=== PATIENT | male | born 1965 | race Caucasian/White ===

== ENCOUNTER → 2018-12-14 | Outpatient (CLI) | payer BC ==
--- NOTE | 2018-12-14 09:17 | MR ---
EXAMINATION TYPE: MR lumbar spine wo con DATE OF EXAM: 12/14/2018 COMPARISON: NONE HISTORY: Right-sided sciatica per order. Low back pain down left leg for 13 weeks per patient. TECHNIQUE: Multiplanar, multisequence imaging of the lumbar spine is performed without IV contrast. FINDINGS: Sagittal images of the lumbar spine show vertebral body to appear satisfactory. Alignment i s straightened with slight grade 1 retrolisthesis of L5 on S1. Multilevel disc desiccation is seen. T here is mild disc space narrowing L4-L5 level. There is advanced disc space narrowing L5-S1 level. T he conus medullaris is normal in position and signal ending mid L1 level. There is heterogeneous rachid r type II endplate changes with moderate anterior spurring right L5-S1 level sagittal image 11. Small hemangioma T12 vertebra is noted sagittal image 6. Axial images show the T12-L1 and L1-L2 levels to appear within normal limits. Axial images at the L2-L3 level show mild broad disc bulge with left foraminal disc protrusion compon ent causing mild left-sided anterior inferior neural foraminal narrowing. Axial images at L3-L4 level show [id number] broad disc bulge with right foraminal/lateral disc protrusion component, there is mild effacement of right anterolateral thecal sac inferiorly moderate right-sided anterior inferior neural foraminal narrowing. Axial images at the L4-L5 level mild facet degenerative changes bilaterally. There is [id number] e broad disc bulge but spinal canal is preserved. There is however advanced left-sided neural foramin al narrowing with obliteration of left-sided epidural fat seen sagittal image 3 and axial image 10 th is could be on basis of focal superior disc extrusion or scar tissue given patient's history of prior surgery 27 years ago. Former is favored. Right-sided neural foramen is patent. Axial images at the L5-S1 level show moderate facet degenerative changes bilaterally. There is cavity pump operator ior spur disc complex but spinal canal is preserved, there is mild to moderate right-sided anterior i nferior neural foraminal narrowing due to marginal spurring. Left-sided neural foramen is patent. No suspicious incidental retroperitoneal findings are seen. IMPRESSION: Multilevel degenerative changes in the lumbar spine as detailed above, attention to the L 4-L5 level where there is marked effacement of the left L4 nerve at foraminal level believed to be du e to superior disc extrusion component likely accounting for patient's clinical symptoms.
== END | disposition home or self-care (01) ==
LOC: RADMRIMAIN 08:11
PROVIDERS: ATTEND Internal Medicine
DX: M51.16 Intervertebral disc disorders with radiculopathy, lumbar region (principal); M47.26 Other spondylosis with radiculopathy, lumbar region
CPT/HCPCS: 72148

== ENCOUNTER 2021-09-07 09:45 | Emergency (ER) | payer BC ==
--- NOTE | 2021-09-07 09:45 | US ---
EXAMINATION TYPE: US venous doppler duplex LE RT DATE OF EXAM: 09/07/2021 9:29 AM COMPARISON: NONE CLINICAL HISTORY: R60.0 LOCALIZED EDEMA. Right calf swelling for the past week SIDE PERFORMED: Right TECHNIQUE: The lower extremity deep venous system is examined utilizing real time linear array sonog kaci with graded compression, doppler sonography and color-flow sonography. VESSELS IMAGED: Common Femoral Vein Deep Femoral Vein Greater Saphenous Vein * Femoral Vein Popliteal Vein Small Saphenous Vein * Proximal Calf Veins (* superficial vessels) Thrombus of the Femoral Vein mid and distal, Popliteal Vein, and Calf vessels Right Leg: Positive for DVT IMPRESSION: 1. Deep venous thrombosis right lower extremity including the mid and distal femoral vein and poplite al vein and proximal calf veins.
[2021-09-07 09:51] VITALS: BP 155/93; PULSE 82; RESP 18; TEMP 98
[2021-09-07] MEDS ORDERED: APIXABAN 5 MG TAB PO STA (10:11)
--- NOTE | 2021-09-07 10:18 | ED ---
General Adult HPI - General Chief complaint: Extremity Injury, Lower Stated complaint: +DVT Time Seen by Provider: 09/07/21 10:00 Source: patient, RN notes reviewed, old records reviewed Mode of arrival: ambulatory Limitations: no limitations - History of Present Illness Initial comments: This is a 55-year-old male who presents emergency Department stating that last few days it swelling of the right leg and is becoming more talked and so he went and saw his primary medical care doctor today and they sent her for an ultrasound. The ultrasound shows a mid to distal femoral vein DVT which appears to be acute and also extends in the popliteal some calf veins. Patient has no difficulty breathing no shortness of breath and no chest pain. Patient denies any other complaints at this time. Patient denies any fever chills. Patient denies any trauma to the leg. Patient denies any recent surgeries. Patient denies any history of similar. - Related Data Home Medications Medication Instructions Recorded Confirmed Aspirin [Adult Low Dose Aspirin EC] 81 mg PO DAILY 08/02/18 08/02/18 glipiZIDE [Glucotrol] 5 mg PO DAILY 08/02/18 08/02/18 Previous Rx's Medication Instructions Recorded Apixaban [Eliquis Starter Pack 5 - 10 mg PO DIRECTED 30 Days 09/07/21 (for VTE)] #1 each Allergies Allergy/AdvReac Type Severity Reaction Status Date / Time No Known Allergies Allergy Verified 09/07/21 09:48 Review of Systems ROS Statement: Those systems with pertinent positive or pertinent negative responses have been documented in the HPI. ROS Other: All systems not noted in ROS Statement are negative. Past Medical History Past Medical History: Diabetes Mellitus, Hyperlipidemia, Hypertension History of Any Multi-Drug Resistant Organisms: None Reported Past Surgical History: Back Surgery Past Anesthesia/Blood Transfusion Reactions: No Reported Reaction Past Psychological History: No Psychological Hx Reported Smoking Status: Former smoker Past Alcohol Use History: None Reported, Occasional Past Drug Use History: None Reported General Exam - General Exam Comments Initial Comments: GENERAL: Patient is well-developed and well-nourished. Patient is nontoxic and well- hydrated and is in no acute distress. ENT: Neck is soft and supple. No significant lymphadenopathy is noted. Oropharynx is clear. Moist mucous membranes. Neck has full range of motion without eliciting any pain. EYES: The sclera were anicteric and conjunctiva were pink and moist. Extraocular movements were intact and pupils were equal round and reactive to light. Eyelids were unremarkable. PULMONARY: Unlabored respirations. Good breath sounds bilaterally. No audible rales rhonchi or wheezing was noted. CARDIOVASCULAR: There is a regular rate and rhythm without any murmurs gallops or rubs. ABDOMEN: Soft and nontender with normal bowel sounds. SKIN: Skin is clear with no lesions or rashes and otherwise unremarkable. NEUROLOGIC: Patient is alert and oriented x3. Cranial nerves II through XII are grossly intact. Motor and sensory are also intact. Normal speech, volume and content. Symmetrical smile. MUSCULOSKELETAL: Right leg is swollen and taut in the calf region patient also some calf tenderness. LYMPHATICS: No significant lymphadenopathy is noted PSYCHIATRIC: Normal psychiatric evaluation. Limitations: no limitations Course Vital Signs 09/07/21 09:49 Temperature 98 F Pulse Rate 82 Respiratory 18 Rate Blood Pressure 155/93 O2 Sat by Pulse 98 Oximetry Medical Decision Making - Medical Decision Making I reviewed the ultrasound of the leg it didn't show acute DVT. Patient was given eliquis in the emergency department sent home with a starter pack for eliquis. Disposition Clinical Impression: Acute DVT (deep venous thrombosis) Disposition: HOME SELF-CARE Prescriptions: Apixaban [Eliquis Starter Pack (for VTE)] 5 - 10 mg PO DIRECTED 30 Days #1 each Is patient prescribed a controlled substance at d/c from ED?: No Referrals: Ama Arvizu MD [Primary Care Provider] - 1-2 days Time of Disposition: 10:17
== END 2021-09-07 10:36 | disposition home or self-care (01) ==
LOC: EC 09:45
DX: I82.411 Acute embolism and thrombosis of right femoral vein (principal); I82.431 Acute embolism and thrombosis of right popliteal vein; I10 Essential (primary) hypertension; E11.9 Type 2 diabetes mellitus without complications; Z87.891 Personal history of nicotine dependence; Z79.82 Long term (current) use of aspirin; Z79.84 Long term (current) use of oral hypoglycemic drugs
CPT/HCPCS: 99283